=== PATIENT | female | born 1985 | race African-American/Black ===

== ENCOUNTER 2021-03-16 16:36 | Inpatient (IN) | payer BC, MEDICAID ==
[~2021-03-16] VITALS: Ht 172.7 cm; Wt 98.9 kg
[2021-03-16] MEDS ORDERED: MORPHINE SULFATE 4 MG/ML CPJ (NOT FOR IM USE) IV ONE ×3 (17:15→21:30)
[2021-03-16 17:41] LABS: BASOPHILS % 0.7 % (0.0-2.0); EOSINOPHILS % 2.4 % (0.0-5.0); HEMATOCRIT. 29.4 % (36.0-48.0); HEMOGLOBIN. 9.6 g/dL (12.0-16.0); MEAN CORPUSCULAR HEMOGLOBIN 24.2 pg (28.0-32.0); MEAN CORPUSCULAR VOLUME 74.2 fL (81.0-99.0); MEAN PLATELET VOLUME 9.2 fl (7.4-10.4); MONOCYTES % 8.9 % (2.0-8.0); PLATELET 235 x1000/uL (130-400); RED BLOOD CELL COUNT 3.96 mill/uL (4.2-5.4); RED CELL DISTRIBUTION WIDTH 18.2 % (11.6-14.6)
[2021-03-16 17:46] LABS: CLARITY URINE CLOUDY (CLEAR); COLOR URINE RED (YELLOW); KETONES URINE NEGATIVE (NEGATIVE); LEUKOCYTE ESTERASE URINE 2+ (NEGATIVE); NITRITE URINE NEGATIVE (NEGATIVE); OCCULT BLOOD URINE 3+ (NEGATIVE); PH URINE 5.5 (4.5-8.0); PROTEIN URINE 2+ (NEGATIVE); SPECIFIC GRAVITY URINE 1.012 (1.005-1.030); UROBILINOGEN URINE 0.2 E.U./dL (0.2-1.0)
[2021-03-16 17:48] LABS: CHLORIDE 111 mEq/L (98-107)
[2021-03-16 17:59] LABS: B-HCG QUANTITATIVE < 1 mIU/mL (<3)
[2021-03-16] MEDS: KETOROLAC 30MG/ML VIAL IV ONE ×2 (18:44→18:47)
[2021-03-17] VITALS: BP 138/76
[2021-03-17] MEDS ORDERED: DIPHENHYDRAMINE 50MG CAPSULE PO PRN (00:30)
[2021-03-17] MEDS ORDERED: ONDANSETRON HCL 4MG/2ML INJ IV PRN (00:30)
[2021-03-17] MEDS ORDERED: POTASSIUM CHLORIDE 20MEQ TABLET SR PO NR (01:00)
[2021-03-17] MEDS: HYDROCODONE/ACETAMINOPHEN 5/325MG TABLET PO PRN ×2 (01:06→09:03)
[2021-03-17 04:00] VITALS: BP 118/82
[2021-03-17 07:53] LABS: CHLORIDE 111 mEq/L (98-107)
[2021-03-17 08:00] VITALS: BP 111/60
[2021-03-17] MEDS ORDERED: FAMOTIDINE 20MG TABLET PO SCH (09:00)
[2021-03-17 09:03] VITALS: BP 111/60
[2021-03-17 09:54] LABS: BASOPHILS % 1.2 % (0.0-2.0); EOSINOPHILS % 3.3 % (0.0-5.0); HEMATOCRIT. 28.4 % (36.0-48.0); HEMOGLOBIN. 9.3 g/dL (12.0-16.0); MEAN CORPUSCULAR HEMOGLOBIN 24.7 pg (28.0-32.0); MEAN PLATELET VOLUME 9.8 fl (7.4-10.4); MONOCYTES % 10.2 % (2.0-8.0); NEUTROPHILS % 37.3 % (40.0-76.0); PLATELET 224 x1000/uL (130-400); RED BLOOD CELL COUNT 3.77 mill/uL (4.2-5.4); RED CELL DISTRIBUTION WIDTH 18.3 % (11.6-14.6)
[2021-03-17 10:00] LABS: MEAN CORPUSCULAR VOLUME 75.3 fL (81.0-99.0)
== END 2021-03-17 10:30 | disposition left against medical advice (07) | DRG 760 ==
LOC: ER 16:45 → 6EST 21:43 → ENRESERV 22:48
PROVIDERS: ADMIT Internal Medicine; ATTEND Internal Medicine
DX: N92.0 Excessive and frequent menstruation with regular cycle (principal); N39.0 Urinary tract infection, site not specified; R10.9 Unspecified abdominal pain; N93.9 Abnormal uterine and vaginal bleeding, unspecified; K42.9 Umbilical hernia without obstruction or gangrene; F17.200 Nicotine dependence, unspecified, uncomplicated; Z90.49 Acquired absence of other specified parts of digestive tract; Z53.29 Procedure and treatment not carried out because of patient's decision for other reasons; R19.09 Other intra-abdominal and pelvic swelling, mass and lump; R91.1 Solitary pulmonary nodule; D64.9 Anemia, unspecified; E87.6 Hypokalemia; E87.8 Other disorders of electrolyte and fluid balance, not elsewhere classified; Z71.6 Tobacco abuse counseling
CPT/HCPCS: 36415; 74176; 76830; 76856; 80048; 80053; 81003; 84702; 85025; 86850; 86900; 99285; J1885; J2270; Q0163

== ENCOUNTER 2021-03-18 00:05 | Inpatient (IN) | payer BC, MEDICAID ==
[~2021-03-18] VITALS: Ht 167.6 cm; Wt 93.4 kg
[2021-03-18] MEDS ORDERED: ONDANSETRON HCL 4MG/2ML INJ IV STA (02:03)
[2021-03-18] MEDS ORDERED: MORPHINE SULFATE 4 MG/ML CPJ (NOT FOR IM USE) IV STA (02:03)
[2021-03-18 03:11] LABS: BASOPHILS % 0.9 % (0.0-2.0); EOSINOPHILS % 3.5 % (0.0-5.0); HEMATOCRIT. 28.5 % (36.0-48.0); HEMOGLOBIN. 9.1 g/dL (12.0-16.0); LYMPHOCYTES % 46.1 % (20.0-50.0); MEAN CORPUSCULAR HEMOGLOBIN 24.3 pg (28.0-32.0); MEAN CORPUSCULAR VOLUME 75.9 fL (81.0-99.0); MEAN PLATELET VOLUME 9.5 fl (7.4-10.4); MONOCYTES % 6.7 % (2.0-8.0); NEUTROPHILS % 42.8 % (40.0-76.0); PLATELET 236 x1000/uL (130-400); RED BLOOD CELL COUNT 3.76 mill/uL (4.2-5.4); RED CELL DISTRIBUTION WIDTH 18.2 % (11.6-14.6)
[2021-03-18] MEDS ORDERED: FENTANYL CITRATE/PF 50MCG/ML 2ML VIAL IV ONE (04:30)
[2021-03-18 09:00] VITALS: BP 120/51
[2021-03-18 10:42] VITALS: BP 120/51
[2021-03-18] MEDS ORDERED: TRAMADOL 50MG TABLET PO PRN (11:00)
[2021-03-18] MEDS ORDERED: ONDANSETRON HCL 4MG/2ML INJ IV PRN (11:00)
[2021-03-18] MEDS: ACETAMINOPHEN 325MG TABLET PO PRN ×2 (14:10→23:59)
[2021-03-18 17:13] LABS: HCG SCREEN NEGATIVE
[2021-03-18] MEDS: HYDROCODONE/ACETAMINOPHEN 5/325MG TABLET PO PRN ×2 (17:13→21:48)
[2021-03-18 17:22] LABS: CHLORIDE 109 mEq/L (98-107)
[2021-03-18 20:00] VITALS: BP 126/84
[2021-03-18] MEDS ORDERED: NICOTINE 14MG PATCH TD SCH (20:00)
[2021-03-19] VITALS: BP 116/76
[2021-03-19] MEDS ORDERED: LEVOFLOXACIN 500MG PREMIX 100 ML IV SCH (01:00)
[2021-03-19 04:00] VITALS: BP 97/57
[2021-03-19 06:02] LABS: CHLORIDE 109 mEq/L (98-107)
[2021-03-19 06:35] LABS: BASOPHILS % 0.2 % (0.0-2.0); EOSINOPHILS % 2.7 % (0.0-5.0); HEMATOCRIT. 29.1 % (36.0-48.0); HEMOGLOBIN. 9.2 g/dL (12.0-16.0); LYMPHOCYTES % 52.5 % (20.0-50.0); MEAN CORPUSCULAR HEMOGLOBIN 23.6 pg (28.0-32.0); MEAN CORPUSCULAR VOLUME 74.9 fL (81.0-99.0); MEAN PLATELET VOLUME 9.3 fl (7.4-10.4); MONOCYTES % 9.9 % (2.0-8.0); NEUTROPHILS % 34.7 % (40.0-76.0); PLATELET 250 x1000/uL (130-400); RED BLOOD CELL COUNT 3.88 mill/uL (4.2-5.4); RED CELL DISTRIBUTION WIDTH 18.1 % (11.6-14.6)
== END 2021-03-19 06:30 | disposition left against medical advice (07) | DRG 761 ==
LOC: ER 00:05 → 6EST 04:16 → ENRESERV 08:03
PROVIDERS: ADMIT Internal Medicine; ATTEND Internal Medicine
DX: D25.9 Leiomyoma of uterus, unspecified (principal); D64.9 Anemia, unspecified; R91.1 Solitary pulmonary nodule; Z53.29 Procedure and treatment not carried out because of patient's decision for other reasons; Z90.49 Acquired absence of other specified parts of digestive tract
CPT/HCPCS: 36415; 71250; 80048; 84703; 85025; 99285; J1956; J2270; J2405; J3010

== ENCOUNTER 2021-06-13 21:04 | Emergency (ER) | payer BC, MEDICAID ==
[~2021-06-13] VITALS: Ht 170.2 cm; Wt 82.0 kg
[2021-06-13] MEDS ORDERED: KETOROLAC 60MG/2ML VIAL IM STA (22:04)
[2021-06-13 23:33] LABS: CLARITY URINE CLEAR (CLEAR); COLOR URINE YELLOW (YELLOW); KETONES URINE NEGATIVE (NEGATIVE); LEUKOCYTE ESTERASE URINE NEGATIVE (NEGATIVE); NITRITE URINE NEGATIVE (NEGATIVE); OCCULT BLOOD URINE 3+ (NEGATIVE); PH URINE 6.5 (4.5-8.0); PROTEIN URINE NEGATIVE (NEGATIVE); SPECIFIC GRAVITY URINE 1.013 (1.005-1.030); UROBILINOGEN URINE 0.2 E.U./dL (0.2-1.0)
[2021-06-13 23:34] LABS: BASOPHILS % 0.8 % (0.0-2.0); CHLORIDE 113 mEq/L (98-107); EOSINOPHILS % 1.5 % (0.0-5.0); HEMATOCRIT. 32.9 % (36.0-48.0); HEMOGLOBIN. 10.8 g/dL (12.0-16.0); LYMPHOCYTES % 36.6 % (20.0-50.0); MEAN CORPUSCULAR HEMOGLOBIN 25.3 pg (28.0-32.0); MEAN CORPUSCULAR VOLUME 77.1 fL (81.0-99.0); MEAN PLATELET VOLUME 8.9 fl (7.4-10.4); MONOCYTES % 10.4 % (2.0-8.0); NEUTROPHILS % 50.7 % (40.0-76.0); PLATELET 234 x1000/uL (130-400); RED BLOOD CELL COUNT 4.28 mill/uL (4.2-5.4); RED CELL DISTRIBUTION WIDTH 20.2 % (11.6-14.6)
[2021-06-14] VITALS: BP 160/92
[2021-06-14] MEDS ORDERED: POTASSIUM CHLORIDE 20MEQ TABLET SR PO ONE
[2021-06-14] MEDS ORDERED: ACETAMINOPHEN 325MG TABLET PO ONE (00:15)
== END 2021-06-14 00:29 | disposition home or self-care (01) ==
LOC: ER 21:04
DX: D25.9 Leiomyoma of uterus, unspecified (principal); Z98.890 Other specified postprocedural states
CPT/HCPCS: 36415; 80053; 81003; 85025; 86850; 86900; 86901; 96372; 99283; J1885

== ENCOUNTER 2022-02-27 19:01 | Emergency (ER) | payer BC, MEDICAID ==
[~2022-02-27] VITALS: Ht 167.6 cm; Wt 180.0 kg
[2022-02-27 19:06] VITALS: BP 152/92
== END 2022-02-27 23:55 | disposition left against medical advice (07) ==
LOC: ER 19:01
DX: Z53.21 Procedure and treatment not carried out due to patient leaving prior to being seen by health care provider (principal)

== ENCOUNTER 2022-04-16 10:40 | Emergency (ER) | payer MEDICAID ==
[~2022-04-16] VITALS: Ht 172.7 cm; Wt 90.0 kg
[2022-04-16] MEDS ORDERED: SODIUM CHLORIDE 0.9% 1,000 ML IV ONE (11:00)
[2022-04-16 13:12] LABS: CHLORIDE 108 mEq/L (98-107)
[2022-04-16 13:15] LABS: HCG SCREEN NEGATIVE
[2022-04-16 13:19] LABS: BASOPHILS % 0.6 % (0.0-2.0); EOSINOPHILS % 0.2 % (0.0-5.0); HEMATOCRIT. 39.6 % (36.0-48.0); HEMOGLOBIN. 13.5 g/dL (12.0-16.0); LYMPHOCYTES % 27.8 % (20.0-50.0); MEAN CORPUSCULAR HEMOGLOBIN 28.6 pg (28.0-32.0); MEAN CORPUSCULAR VOLUME 84.2 fL (81.0-99.0); MEAN PLATELET VOLUME 9.7 fl (7.4-10.4); MONOCYTES % 9.1 % (2.0-8.0); NEUTROPHILS % 62.3 % (40.0-76.0); PLATELET 197 x1000/uL (130-400); RED BLOOD CELL COUNT 4.71 mill/uL (4.2-5.4); RED CELL DISTRIBUTION WIDTH 13.7 % (11.6-14.6)
[2022-04-16 13:23] LABS: ETHANOL BLOOD < 10 mg/dL
[2022-04-16] MEDS ORDERED: KETOROLAC 15MG/ML VIAL IV ONE (14:00)
[2022-04-16 14:35] VITALS: BP 103/89
== END 2022-04-16 14:40 | disposition home or self-care (01) ==
LOC: ER 10:40
DX: R10.33 Periumbilical pain (principal); R07.89 Other chest pain; E78.00 Pure hypercholesterolemia, unspecified; Z90.49 Acquired absence of other specified parts of digestive tract
CPT/HCPCS: 36415; 71045; 80053; 80320; 83690; 83880; 84443; 84484; 84703; 85025; 85379; 93005; 96360; 96361; 99285; J7030; G0480

== ENCOUNTER 2023-06-21 17:39 | Emergency (ER) | payer MEDICAID, OTHER ==
[~2023-06-21] VITALS: Ht 167.6 cm; Wt 81.6 kg
[2023-06-21 18:03] VITALS: O2SAT 97
[2023-06-21 18:40] VITALS: TEMP 98.9
[2023-06-21] MEDS ORDERED: BACITRACIN ZINC OINT UDPKT TOP ONE (19:15)
[2023-06-21] MEDS ORDERED: TETANUS, DIPHTHERIA, PERTUSSIS VAC/PF 0.5ML (>10YR OLD) IM ONE (19:15)
[2023-06-21] MEDS ORDERED: DOXYCYCLINE HYCLATE 100MG CAPSULE PO ONE (19:15)
[2023-06-21] MEDS ORDERED: LIDOCAINE HCL/PF 1% 10 MG/ML 5ML VIAL INFIL ONE (19:15)
[2023-06-21] MEDS ORDERED: MORPHINE SULFATE 4 MG/ML CPJ (NOT FOR IM USE) IV ONE (21:00)
[2023-06-21 21:09] VITALS: BP 149/125; PULSE 71; RESP 19
[2023-06-21] MEDS ORDERED: SULF1TAB48 MT (21:22)
[2023-06-21] MEDS ORDERED: CEPH500T MT (21:22)
== END 2023-06-21 21:56 | disposition home or self-care (01) ==
LOC: ER 17:39
DX: L02.214 Cutaneous abscess of groin (principal); I49.9 Cardiac arrhythmia, unspecified; Z98.890 Other specified postprocedural states; Z90.49 Acquired absence of other specified parts of digestive tract
CPT/HCPCS: 99283; 96374; 10060; 90715; 93005; 90471; J3490; J2270

== ENCOUNTER 2023-08-09 21:26 | Emergency (ER) | payer MEDICAID ==
[~2023-08-09] VITALS: Ht 167.6 cm; Wt 82.0 kg
[~2023-08-09 21:26] MED LIST: CEPH500T MT; SULF1TAB48 MT
[2023-08-09 22:21] VITALS: O2SAT 100
[2023-08-10] LABS: BASOPHILS % 0.5 % (0.0-2.0); EOSINOPHILS % 0.3 % (0.0-5.0); HEMATOCRIT. 35.7 % (36.0-48.0); HEMOGLOBIN. 11.9 g/dL (12.0-16.0); LYMPHOCYTES % 30.4 % (20.0-50.0); MEAN CORPUSCULAR HEMOGLOBIN 28.2 pg (28.0-32.0); MEAN CORPUSCULAR HGB CONC 33.3 g/dL (31.0-37.0); MEAN CORPUSCULAR VOLUME 84.6 fL (81.0-99.0); MEAN PLATELET VOLUME 8.8 fl (7.4-10.4); MONOCYTES % 7.5 % (2.0-8.0); NEUTROPHILS % 61.3 % (40.0-76.0); PLATELET 225 x1000/uL (130-400); RED BLOOD CELL COUNT 4.22 mill/uL (4.2-5.4); RED CELL DISTRIBUTION WIDTH 14.3 % (11.6-14.6); WHITE BLOOD COUNT 6.3 x1000/uL (4.5-11.0)
[2023-08-10 00:06] LABS: CHLORIDE 113 mEq/L (98-107); INDEX HEMOLYSI 1 (1-3); INDEX ICTERIC 1 (1-4); INDEX LIPEMIC 1 (1-3); POTASSIUM 3.7 mEq/L (3.5-5.1); SODIUM 141 mEq/L (136-145)
[2023-08-10 00:16] LABS: ALANINE AMINOTRANSFERASE 23 IU/L (13-61); ALBUMIN 3.8 g/dL (3.4-5.0); ASPARTATE AMINOTRANSFERASE 16 IU/L (15-37); BILIRUBIN TOTAL 0.4 mg/dL (0.1-1.0); CALCIUM 8.6 mg/dL (8.5-10.1); CARBON DIOXIDE 24 mEq/L (21-32); CREATININE 0.6 mg/dL (0.6-1.3); GLUCOSE 94 mg/dL (70-105); PROTEIN TOTAL 7.7 g/dL (6.0-8.3); TROPONIN I HIGH SENSITIVITY 4 ng/L (<54); UREA NITROGEN BLOOD 7 mg/dL (7-21)
[2023-08-10] MEDS ORDERED: METOCLOPRAMIDE HCL 10MG TABLET PO ONE (02:45)
[2023-08-10] MEDS ORDERED: ACETAMINOPHEN 325MG TABLET PO ONE (02:45)
[2023-08-10 02:53] VITALS: BP 190/88; PULSE 69; RESP 19
[2023-08-10 03:06] LABS: CLARITY URINE CLOUDY (CLEAR); COLOR URINE YELLOW (YELLOW); GLUCOSE URINE NEGATIVE (NEGATIVE); KETONES URINE NEGATIVE (NEGATIVE); LEUKOCYTE ESTERASE URINE 1+ (NEGATIVE); NITRITE URINE NEGATIVE (NEGATIVE); OCCULT BLOOD URINE NEGATIVE (NEGATIVE); PH URINE 7.5 (4.5-8.0); PROTEIN URINE NEGATIVE (NEGATIVE); SPECIFIC GRAVITY URINE 1.018 (1.005-1.030)
[2023-08-10 03:09] LABS: RBC URINE 0-2 /hpf (0-2); SQUAMOUS EPITHELIAL CELL URINE 1+ /lpf (RARE/1+); YEAST URINE NONE SEEN
[2023-08-10 03:31] LABS: BACTERIA URINE 1+
[2023-08-10 03:43] VITALS: TEMP 97.8
== END 2023-08-10 04:25 | disposition left against medical advice (07) ==
LOC: ER 22:28
DX: R55 Syncope and collapse (principal); Z91.81 History of falling; Z90.49 Acquired absence of other specified parts of digestive tract; Z90.710 Acquired absence of both cervix and uterus; Z98.890 Other specified postprocedural states; W19.XXXA Unspecified fall, initial encounter; Y93.89 Activity, other specified; Y92.89 Other specified places as the place of occurrence of the external cause; Y99.8 Other external cause status
CPT/HCPCS: 99284; 80053; 83690; 85025; 84484; 36415; 93005; 81003; 81025; J8597

== ENCOUNTER 2024-07-21 09:55 | Emergency (ER) | payer MEDICAID ==
[~2024-07-21] VITALS: Ht 167.6 cm; Wt 73.0 kg
[2024-07-21 10:03] VITALS: O2SAT 100
[2024-07-21] MEDS ORDERED: DIPH25TA24 MT (10:48)
[2024-07-21] MEDS ORDERED: ACET325T52 MT (10:48)
[2024-07-21 10:53] VITALS: TEMP 98.6
[2024-07-21] MEDS: DIPHENHYDRAMINE 25MG CAPSULE PO ONE (10:53)
[2024-07-21] MEDS: ACETAMINOPHEN 325MG TABLET PO ONE (10:53)
[2024-07-21 10:58] VITALS: BP 98/66; PULSE 64; RESP 16; O2SAT 99
== END 2024-07-21 11:00 | disposition home or self-care (01) ==
LOC: ER 09:55
DX: T63.301A Toxic effect of unspecified spider venom, accidental (unintentional), initial encounter (principal); M79.641 Pain in right hand; Z90.49 Acquired absence of other specified parts of digestive tract; Z90.710 Acquired absence of both cervix and uterus; Z98.890 Other specified postprocedural states; Z79.899 Other long term (current) drug therapy; Z88.8 Allergy status to other drugs, medicaments and biological substances; Y99.8 Other external cause status
CPT/HCPCS: 99283; Q0163

== ENCOUNTER 2024-11-15 18:48 | Emergency (ER) | payer OTHER ==
[~2024-11-15] VITALS: Ht 167.6 cm; Wt 82.0 kg
[~2024-11-15 18:48] MED LIST changes: +ACET-3800 MT; +AMLO5TAB88 PO; +DIPH25TA24 MT
[2024-11-15 19:01] VITALS: TEMP 36.9; O2SAT 100
[2024-11-15] MEDS: LIDOCAINE 5% PATCH TOP SCH (20:00)
[2024-11-15] MEDS: ACETAMINOPHEN 325MG TABLET PO ONE (20:05)
[2024-11-15] MEDS: KETOROLAC 15MG/ML VIAL IM ONE (20:05)
[2024-11-15 20:47] VITALS: BP 96/51; PULSE 100; RESP 16
[2024-11-15] MEDS: MORPHINE SULFATE 4 MG/ML INJ (FOR IV/IM USE) IM ONE (20:47)
== END 2024-11-15 22:50 | disposition left against medical advice (07) ==
LOC: ER 18:48
DX: M54.9 Dorsalgia, unspecified (principal); I10 Essential (primary) hypertension; F12.90 Cannabis use, unspecified, uncomplicated; Z88.8 Allergy status to other drugs, medicaments and biological substances
CPT/HCPCS: 96372; 99283; J2270; Z7610 ×2; J1885

== ENCOUNTER 2024-12-01 19:55 | Emergency (ER) | payer MEDICAID, OTHER ==
[~2024-12-01] VITALS: Ht 167.6 cm; Wt 91.0 kg
[2024-12-01 19:59] VITALS: O2SAT 99
[2024-12-01 21:07] VITALS: TEMP 36.9; O2SAT 98
[2024-12-01] MEDS: SODIUM CHLORIDE 0.9% 1,000 ML IV ONE (21:54)
[2024-12-01] MEDS: ACETAMINOPHEN 325MG TABLET PO STA (21:54)
[2024-12-01 21:58] LABS: BASOPHILS % 0.5 % (0.0-2.0); HEMATOCRIT. 34.3 % (36.0-48.0); HEMOGLOBIN. 11.4 g/dL (12.0-16.0); LYMPHOCYTES % 35.6 % (20.0-50.0); MEAN CORPUSCULAR HEMOGLOBIN 28.6 pg (28.0-32.0); MEAN CORPUSCULAR HGB CONC 33.3 g/dL (31.0-37.0); MEAN CORPUSCULAR VOLUME 85.8 fL (81.0-99.0); MEAN PLATELET VOLUME 8.4 fl (7.4-10.4); MONOCYTES % 7.4 % (2.0-8.0); NEUTROPHILS % 55.5 % (40.0-76.0); PLATELET 253 x1000/uL (130-400); RED CELL DISTRIBUTION WIDTH 14.3 % (11.6-14.6); WHITE BLOOD COUNT 5.8 x1000/uL (4.5-11.0)
[2024-12-01 22:05] LABS: CHLORIDE 112 mEq/L (98-107); POTASSIUM 3.6 mEq/L (3.5-5.1)
[2024-12-01 22:06] LABS: SODIUM 145 mEq/L (136-145)
[2024-12-01 22:07] LABS: CALCIUM 9.1 mg/dL (8.7-10.4); CARBON DIOXIDE 21 mEq/L (21-32)
[2024-12-01 22:11] LABS: CREATININE 0.6 mg/dL (0.6-1.0); GLUCOSE 114 mg/dL (70-105)
[2024-12-01 22:12] LABS: ETHANOL BLOOD 155 mg/dL (<10); HCG SCREEN NEGATIVE; UREA NITROGEN BLOOD 7 mg/dL (9-23)
[2024-12-01 22:14] LABS: CREATINE KINASE 80 IU/L (34-145)
[2024-12-01 22:38] LABS: CLARITY URINE CLEAR (CLEAR); COLOR URINE YELLOW (YELLOW); GLUCOSE URINE NEGATIVE (NEGATIVE); KETONES URINE NEGATIVE (NEGATIVE); LEUKOCYTE ESTERASE URINE 1+ (NEGATIVE); NITRITE URINE NEGATIVE (NEGATIVE); OCCULT BLOOD URINE NEGATIVE (NEGATIVE); PH URINE 6.5 (4.5-8.0); PROTEIN URINE NEGATIVE (NEGATIVE); SPECIFIC GRAVITY URINE 1.003 (1.005-1.030); UROBILINOGEN URINE 0.2 E.U./dL (0.2-1.0)
[2024-12-01 22:46] LABS: *AMPHETAMINES SCREEN URINE NEGATIVE (NEGATIVE); *BARBITURATES SCREEN URINE NEGATIVE (NEGATIVE); *BENZODIAZEPINES SCREEN URINE NEGATIVE (NEGATIVE)
[2024-12-01 22:47] LABS: *COCAINE SCREEN URINE NEGATIVE (NEGATIVE); CANNABINOID URINE SCREEN PRESUMPTIVE POSITIVE (NEGATIVE); ECSTASY MDMA SCREEN URINE NEGATIVE (NEGATIVE); METHADONE URINE SCREEN NEGATIVE (NEGATIVE); OPIATES URINE SCREEN NEGATIVE (NEGATIVE); PHENCYCLIDINE URINE SCREEN NEGATIVE (NEGATIVE)
[2024-12-01 23:04] LABS: BACTERIA URINE 1+; RBC URINE 0-2 /hpf (0-2); SQUAMOUS EPITHELIAL CELL URINE FEW /lpf (RARE/1+)
[2024-12-02 00:56] VITALS: BP 106/68; PULSE 89; RESP 18
[2024-12-02] MEDS: MORPHINE SULFATE 4 MG/ML INJ (FOR IV/IM USE) IV ONE (00:56)
[2024-12-02] MEDS: LORAZEPAM 2MG/ML INJ IV ONE (02:46)
== END 2024-12-02 04:43 | disposition left against medical advice (07) ==
LOC: ER 19:55 → CANBEDREQ 12-02 04:30 → ER 12-02 04:43
DX: G89.29 Other chronic pain (principal); M54.59 Other low back pain; F17.200 Nicotine dependence, unspecified, uncomplicated; F10.90 Alcohol use, unspecified, uncomplicated; M54.32 Sciatica, left side; M54.31 Sciatica, right side; I10 Essential (primary) hypertension
CPT/HCPCS: 80305; 80048; 81003; 81025; 80320; 82550; 84703; 85025; 36415; 96361; 99284; 96374; 96375; J7030; Z7610; J2060; J2270; 99285; A4606; G0480